=== PATIENT | male | born 1990 | race Caucasian/White ===

== ENCOUNTER 2020-10-01 15:18 | Emergency (ER) | payer OTHER ==
[2020-10-01 15:54] VITALS: BP 137/74; PULSE 72; TEMP 98.1; BMI 25.8
[2020-10-01 18:16] LABS: URINE APPEARANCE CLEAR; URINE BILIRUBIN NEGATIVE (NEGATIVE); URINE COLOR YELLOW; URINE GLUCOSE (UA) NEGATIVE (NEGATIVE); URINE KETONE TRACE (NEGATIVE); URINE LEUK ESTERASE NEGATIVE (NEGATIVE); URINE NITRITE NEGATIVE (NEGATIVE); URINE PROTEIN NEGATIVE (NEGATIVE)
[2020-10-01] MEDS ORDERED: ACETAMINOPHEN 500 MG TABLET (FP) PO ONE (19:11)
[2020-10-01] MEDS ORDERED: ACETAMINOPHEN 500 MG TABLET (FP) ONE (19:41)
[2020-10-01 21:02] LABS: HIV INTERPRETATION NEGATIVE (NEGATIVE)
== END 2020-10-01 19:46 | disposition home or self-care (01) ==
LOC: JER 15:18
DX: I86.1 Scrotal varices (principal)
CPT/HCPCS: 36415; 76870-TC; 81003; 87086; 87389; 87491; 87591; 99284-25

== ENCOUNTER 2020-10-03 22:39 | Emergency (ER) | payer OTHER ==
[2020-10-03 22:48] VITALS: BP 137/90; PULSE 81; TEMP 98.7; BMI 25.0
[2020-10-03] MEDS ORDERED: ACETAMINOPHEN 325 MG TABLET (FP) ONE (22:57)
[2020-10-03] MEDS ORDERED: ACETAMINOPHEN 325 MG TABLET (FP) PO ONE (22:58)
== END 2020-10-03 23:59 | disposition home or self-care (01) ==
LOC: JER 22:39
DX: N50.811 Right testicular pain (principal); N50.812 Left testicular pain
CPT/HCPCS: 76870-TC; 99284-25